=== PATIENT | male | born 1985 | race Caucasian/White ===

== ENCOUNTER 2016-12-12 15:41 | Inpatient (IN) ==
[2016-12-12 17:10] LABS: MANUAL DIFF NEEDED? NO
[2016-12-12 17:21] LABS: BASO% 0.2 % (0.0-0.8); EOS# 0.06 X1000 (0.0-0.7); EOS% 0.5 % (0.0-10.0); HEMATOCRIT 44.3 % (42.0-52.0); HEMOGLOBIN 14.8 g/dL (14.0-18.0); IMM GRAN# 0.03 X1000 (0.0-0.04); IMM GRAN% 0.2 % (0.0-0.5); LYMPH# 2.11 X1000 (1.2-3.4); LYMPH% 16.6 % (20.5-51.1); MCH 29.9 PG (27-31); MCHC 33.4 g/dL (33-37); MCV 89.5 FL (81-99); MONO# 1.02 X1000 (0.11-0.59); MPV 9.8 FL (7.4-10.4); NEUT% 74.5 % (42.2-75.2); PLT 248 X1000 (130-400); RBC 4.95 XMIL (4.7-6.1)
[2016-12-12 17:31] LABS: AGAP 9; ALBUMIN 4.1 g/dL (3.5-5.0); ALKALINE PHOSPHATASE 104 U/L (32-122); BUN 6 mg/dL (8-22); CALCIUM 9.1 mg/dL (8.8-10.2); CHLORIDE 103 mmol/L (98-107); COSMO 273; GOT 11 U/L (10-34); GPT 10 U/L (10-44); POTASSIUM 4.2 mmol/L (3.5-5.1); SODIUM 138 mmol/L (136-145); TCO2 26 mmol/L (25-35); TOTAL PROTEIN 7.4 g/dL (6.3-8.3)
[2016-12-12] MEDS: VANCOMYCIN 1 GM/NS 1 GM/250 ML IVPB IV ONE ×2 (17:31→18:20)
[2016-12-12 17:44] LABS: UR AMPHETAMINES QUAL NONE DETECTED (NONE DETECT); UR BARBITUATES QUAL NONE DETECTED (NONE DETECT); UR BENZODIAZEPIN QUAL NONE DETECTED (NONE DETECT); UR CANNABINOIDS QUAL PRESUMPTIVE POSITIVE (NONE DETECT); UR COCAINE QUAL NONE DETECTED (NONE DETECT); UR MDMA QUAL NONE DETECTED (NONE DETECT); UR METHADONE QUAL NONE DETECTED (NONE DETECT); UR METHAMPHETAMINE QUAL NONE DETECTED (NONE DETECT); UR OPIATES QUAL NONE DETECTED (NONE DETECT); UR OXYCODONE QUAL NONE DETECTED (NONE DETECT); UR PCP QUAL NONE DETECTED (NONE DETECT); UR TCA QUAL NONE DETECTED (NONE DETECT)
[2016-12-12 17:45] LABS: BILIRUBIN URINE NEGATIVE (NEGATIVE); BLOOD URINE NEGATIVE (NEGATIVE); CLARITY CLEAR (CLEAR); COLOR YELLOW; GLUCOSE URINE NEGATIVE (NEGATIVE); LEUKOCYTES URINE TRACE (NEGATIVE); NITRITE URINE NEGATIVE (NEGATIVE); PROTEIN URINE NEGATIVE (NEGATIVE); SP GRAVITY URINE 1.005; UROBILINOGEN URINE NORMAL
[2016-12-12 17:56] LABS: URINE EPITHELIAL CELLS <10 /HPF (<10); URINE WBC <10 /HPF (<10)
[2016-12-12 17:57] LABS: URINE CAST NONE SEEN /LPF; URINE CRYSTAL NONE SEEN /HPF; URINE CULTURE PL NEEDED? YES; URINE SOURCE CLEAN CATCH
[2016-12-12] MEDS ORDERED: TYLENOL PO PRN (19:17)
[2016-12-12] MEDS ORDERED: ZOFRAN IV PRN (19:17)
[2016-12-12] MEDS ORDERED: NS 1,000 ML IV ONE (19:17)
[2016-12-12] MEDS ORDERED: MORPHINE IV PRN (19:17)
[2016-12-12] MEDS ORDERED: VANCOMYCIN IV PER PHARMACY MISC SCH (19:30)
[2016-12-12] MEDS: MERREM 1 GM in NS 50 ML IV SCH (20:00)
[2016-12-12] MEDS: MORPHINE IV PRN (22:16)
[2016-12-13] MEDS: MERREM 1 GM in NS 50 ML IV SCH ×3 (03:33→20:18)
[2016-12-13] MEDS: MORPHINE IV PRN ×7 (07:17→22:19)
[2016-12-13] MEDS: VANCOMYCIN 1,500 MG in NS 250 ML IV SCH ×2 (07:59→22:19)
[2016-12-13] MEDS: TORADOL IV PRN (10:23)
--- NOTE | 2016-12-13 14:11 | HISTORY AND PHYSICAL ---
PRIMARY CARE PHYSICIAN: None. CHIEF COMPLAINT: Left elbow swelling and redness with chills and a subjective fever for the past several days, that has progressively worsened. HISTORY OF PRESENTING ILLNESS: This is a 31-year-old male, who presents to [facility] Emergency Room, with complaints of the left elbow swelling and redness, with chills and a subjective fever for the past several days that has progressively worsened. States he does not know of any injury or issues that may have caused this swelling and redness. Workup in the ER showed a white blood cell count of 12.72. His urine drug presumptive positive for cannabinoids, which he states he uses occasionally. He is noted to have erythema, edema, and tenderness to touch to his left elbow, and is unable to straighten his arm out at this time. So, he is being admitted for further evaluation and treatment. PAST MEDICAL HISTORY: None. PAST SURGICAL HISTORY: Appendectomy and a left forearm surgery. FAMILY HISTORY: Noncontributory. SOCIAL HISTORY: Currently lives with family. Smokes a half a pack of cigarettes a day and has done so for the past 17 years. Denies any alcohol use and smokes marijuana occasionally. ALLERGIES: Penicillin. HOME MEDICATIONS: He does not take any medications on a routine basis. LABORATORY DATA: Shows a white blood cell count of 12.72, hemoglobin of 14.8, hematocrit 44.3, platelets 248,000. Sodium 138, potassium 4.2, chloride 103, CO2 26, BUN of 6, creatinine 0.7, glucose 93. Plasma lactate of 1. Urinalysis is negative. Urine drug screen is presumptive positive for cannabinoids. Urine culture shows no growth. Blood cultures x2 are pending. REVIEW OF SYSTEMS: Positive for fever, chills, left elbow swelling, redness, and tenderness to touch. Denies any chest pain, coughing, or shortness of breath. Denies any constipation, diarrhea, burning or hurting with urination. PHYSICAL EXAMINATION: VITAL SIGNS: On arrival, he had a temperature of a 100 degrees, pulse 108, respirations 19, blood pressure 135/75, saturating 100% on room air. GENERAL: This is a 31-year-old male, who is lying in the bed and answers all questions appropriately. HEENT: Normocephalic and atraumatic. The pupils are equal, round, and reactive to light. The extraocular movements are intact. Oropharynx and nares are clear. NECK: Supple. LUNGS: Clear to auscultation bilaterally with equal lung expansion and chest wall movement. HEART: With regular rate and rhythm. No murmurs, rubs, or gallops. ABDOMEN: Soft, nontender, nondistended. Bowel sounds are present x4 quadrants. EXTREMITIES: The patient's left elbow is noted to have edema, erythema, and tenderness to touch. Unable to extend at this time, as it causes pain. NEUROLOGICAL: The cranial nerves 2-12 are grossly intact. ASSESSMENT: 1. A left elbow cellulitis. 2. Leukocytosis. 3. Tobacco abuse. 4. Marijuana abuse. PLAN: He was admitted to the medical unit at [facility]. Placed on a regular diet. We are checking an HIV/AB screen. Placed on meropenem 1 gram IV q.8, morphine 2 mg IV q.2 hours p.r.n., vancomycin per pharmacy protocol, and will recheck a CBC and a BMP in the a.m. Dictated by XIMENA Bee for James Cochran MD cc: XIMENA Bee MD
[2016-12-14] MEDS: MERREM 1 GM in NS 50 ML IV SCH ×3 (04:32→19:49)
[2016-12-14] MEDS: MORPHINE IV PRN ×6 (05:31→19:48)
[2016-12-14] MEDS: TORADOL IV PRN ×3 (05:35→19:49)
[2016-12-14 06:31] LABS: MANUAL DIFF NEEDED? NO
[2016-12-14 06:38] LABS: BASO% 0.4 % (0.0-0.8); EOS# 0.22 X1000 (0.0-0.7); EOS% 1.7 % (0.0-10.0); HEMATOCRIT 40.3 % (42.0-52.0); HEMOGLOBIN 13.2 g/dL (14.0-18.0); IMM GRAN# 0.02 X1000 (0.0-0.04); IMM GRAN% 0.2 % (0.0-0.5); LYMPH# 1.86 X1000 (1.2-3.4); LYMPH% 14.5 % (20.5-51.1); MCH 29.6 PG (27-31); MCHC 32.8 g/dL (33-37); MCV 90.4 FL (81-99); MONO# 1.14 X1000 (0.11-0.59); MONO% 8.9 % (1.7-9.3); NEUT% 74.3 % (42.2-75.2); PLT 230 X1000 (130-400); RBC 4.46 XMIL (4.7-6.1)
[2016-12-14 07:03] LABS: AGAP 10; BUN 11 mg/dL (8-22); CALCIUM 8.5 mg/dL (8.8-10.2); CHLORIDE 102 mmol/L (98-107); COSMO 267; POTASSIUM 4.4 mmol/L (3.5-5.1); SODIUM 134 mmol/L (136-145); TCO2 23 mmol/L (25-35)
[2016-12-14] MEDS: VANCOMYCIN 1,500 MG in NS 250 ML IV SCH ×2 (08:29→20:57)
[2016-12-14 11:21] LABS: HIV ANTIBODY SCREEN SEE COMMENTS
--- NOTE | 2016-12-14 15:53 | PROGRESS NOTE ---
DATE: 12/14/2016 SUBJECTIVE: This patient states that he is feeling a little bit better, but he is still complaining of pain at the level of the left elbow. He denies nausea, vomiting. No diarrhea, no fever, no chills. OBJECTIVE: Vital Signs: Temperature 98.3 degrees, pulse 60, respiratory rate 20, blood pressure 118/51, oxygen saturation 99 on room air. HEENT: Head normocephalic. No trauma. PERRLA. Neck: Supple. No JVD. No masses. Central trachea. Chest: Clear to auscultation. No wheezing. No rales. Cardiovascular: RRR. No murmurs. No gallops. No rubs. Abdomen: Soft, nontender, nondistended. No hepatosplenomegaly. Extremities: No edema, no clubbing, no cyanosis. He has signs of infection at the level of the left antecubital fossa. Neurological examination: The patient is alert and oriented x3. No focal neurological deficits. LABORATORY: WBC 12.8, hemoglobin 13.2, hematocrit 40.3, platelets 230. Sodium 134, potassium 4.4, chloride 102, bicarbonate 23, BUN 11, creatinine 0.5, glucose 91, calcium 8.5. CULTURES: Urine culture and blood culture negative so far. ASSESSMENT AND PLAN: 1. Left antecubital fossa cellulitis, continue with broad spectrum antibiotics. This patient has been denying multiple times intravenous drugs use. I will continue with the same management for now, and I will add oral medication for his pain as well. 2. Leukocytosis. This is about the same. Continue to monitor. 3. Marijuana abuse. This patient has been highly advised against drug abuse. I will continue with daily cessation education. 4. Tobacco abuse. This patient has been highly advised against tobacco use, and I will continue daily cessation education as well. cc: James Cochran MD
[2016-12-14] MEDS: NORCO-7.5 PO PRN (17:46)
[2016-12-15] MEDS: MERREM 1 GM in NS 50 ML IV SCH ×2 (05:06→14:02)
[2016-12-15] MEDS: MORPHINE IV PRN ×5 (06:35→21:07)
[2016-12-15 08:02] LABS: MANUAL DIFF NEEDED? NO
[2016-12-15 08:06] LABS: BASO% 0.5 % (0.0-0.8); EOS# 0.23 X1000 (0.0-0.7); EOS% 2.4 % (0.0-10.0); HEMATOCRIT 40.9 % (42.0-52.0); HEMOGLOBIN 13.4 g/dL (14.0-18.0); IMM GRAN# 0.02 X1000 (0.0-0.04); IMM GRAN% 0.2 % (0.0-0.5); LYMPH# 1.97 X1000 (1.2-3.4); LYMPH% 20.6 % (20.5-51.1); MCH 29.5 PG (27-31); MCHC 32.8 g/dL (33-37); MCV 90.1 FL (81-99); MONO# 0.82 X1000 (0.11-0.59); MONO% 8.6 % (1.7-9.3); NEUT% 67.7 % (42.2-75.2); PLT 227 X1000 (130-400); RBC 4.54 XMIL (4.7-6.1)
[2016-12-15] MEDS: TORADOL IV PRN ×2 (08:14→16:08)
[2016-12-15 09:11] LABS: AGAP 10; BUN 12 mg/dL (8-22); CALCIUM 8.9 mg/dL (8.8-10.2); CHLORIDE 106 mmol/L (98-107); COSMO 277; POTASSIUM 4.7 mmol/L (3.5-5.1); SODIUM 139 mmol/L (136-145); TCO2 23 mmol/L (25-35)
[2016-12-15] MEDS: VANCOMYCIN 1,700 MG in NS 250 ML IV SCH ×2 (11:42→23:36)
[2016-12-15] MEDS: VANCOMYCIN 1,500 MG in NS 250 ML IV SCH (12:00)
[2016-12-15] MEDS: ROCEPHIN 1 GM/NS 1 GM/50 ML IVPB IV SCH (16:01)
[2016-12-15] MEDS: NORCO-7.5 PO PRN (16:08)
--- NOTE | 2016-12-15 16:25 | PROGRESS NOTE ---
DATE: 12/15/2016 SUBJECTIVE: Today Mr. Ricks referred to be doing fine. Continued to have some swelling and pain in the left cubital fossa. OBJECTIVE: Vitals: Stable. Blood pressure is 120/53, pulse of 80, respiration is 18, temperature is 98.8 degrees. General Exam: Mr. Ricks is a 31-year-old male. He is in bed, not seemingly in distress. HEENT: Mucosa is pink and moist. Anicteric. Acyanotic. Neck: Supple. Chest: Clear. Cardiovascular: Regular rate and rhythm. Abdomen: Soft, nontender. Extremities: There is no pedal edema. There is about 4 x 3 cm swelling on the lateral aspect of the left cubital fossa, it is warm, it is tender. There is a central area of possible minimal fluctuation. SURVEILLANCE MANAGER: Patient is alert and oriented x4. There is no focal neurological deficit. ASSESSMENT: 1. Left antecubital fossa cellulitis. Patient is currently on meropenem and vancomycin. I think this is most likely skin bugs. So we will cover for streps and staph. I will therefore discontinue the meropenem which is a broader spectrum, continue with the vancomycin which will cover for the staff. I will add ceftriaxone for now. The intention is when the swelling is a lot better we can transition it to only one oral medication, and I am thinking clindamycin p.o. would probably do as well. We are really not sure what might have started the cellulitis. It looks like it could have been something bit him or a possible underlying IV drug, so I am very reluctant to send him home on any IV medications. 2. Marijuana abuse noted. 3. Active tobacco use. Patient has been counseled. 4. Leukocytosis. Improved. So I think in general Mr. Ricks is doing fine. We will make some changes to his care and antibiotics. Hopefully by tomorrow if he continues to progress satisfactorily, we will be able to discharge him probably on oral clindamycin. cc: John Dixon MD [facility]
[2016-12-16] MEDS: VANCOMYCIN 1,700 MG in NS 250 ML IV SCH ×2 (00:02→11:13)
[2016-12-16] MEDS: MORPHINE IV PRN ×3 (08:50→14:49)
[2016-12-16] MEDS ORDERED: XYLOCAINE-MPF 2% ONE (14:39)
[2016-12-16] MEDS: ROCEPHIN 1 GM/NS 1 GM/50 ML IVPB IV SCH (15:22)
--- NOTE | 2016-12-16 15:39 | OPERATIVE NOTE ---
PROCEDURE DATE: 12/16/2016 PREOPERATIVE DIAGNOSIS: Left antecubital fossa abscess. POSTOPERATIVE DIAGNOSIS: Left antecubital fossa infected hematoma. PROCEDURE PERFORMED: Incision and drainage of left antecubital fossa abscess. ESTIMATED BLOOD LOSS: Old hematoma, but minimal, less than 5 mL fresh blood loss. COMPLICATION: None. ANESTHESIA: Local. SPECIMENS: None. INDICATIONS: A 31-year-old male with history of IV drug abuse, now with left antecubital fossa abscess. FINDINGS: There was a large cavity with a large amount of old-appearing hematoma and clot that was purulent. OPERATIVE NOTE: Risks, benefits, and alternatives were discussed with the patient and he consented to the procedure. The surgical site was confirmed. Time-out was performed. Left AC fossa was prepped with Betadine and draped sterilely. A transverse incision over the area of greatest fluctuance was planned. Local anesthetic with 2% Xylocaine was infiltrated. An 11 blade scalpel was used to enter the abscess cavity. A large amount of old purulent hematoma was expressed, loculations were disrupted, and it was completely evacuated. We confirmed hemostasis. We packed the wound with iodoform gauze covered with a loose Kerlix. He tolerated it well. There were no identified complications. cc: Antoine Santiago MD
--- NOTE | 2016-12-16 16:09 | PROGRESS NOTE ---
DATE: 12/16/2016 SUBJECTIVE: Today Mr. Ricks referred to be doing relatively stable. He continues to have swelling to the left antecubital fossa. OBJECTIVE: Vitals: Blood pressure is 122/48, pulse of 73, respiration is 18, temperature 98.3 degrees. Patient is saturating 98% on room air. Physical exam is unchanged except for the left antecubital fossa which still has the swelling. The middle part of it is now very fluctuant and there is a discoloration right on top of it. ASSESSMENT: 1. Left antecubital fossa cellulitis. This is now getting fluctuant. I think it has now abscessed, so we will get Surgery on board to perform an incision and drainage, and we will send the specimen for culture and Gram stain. 2. Marijuana abuse. Patient has been advised. 3. Active tobacco use. Counseled. So in general we are going to continue with the current antibiotic coverage including vancomycin and ceftriaxone. We will consult Surgery to evaluate for incision and drainage, hopefully get the patient discharged very soon. cc: John Dixon MD [facility]
[2016-12-16] MEDS: NORCO-7.5 PO PRN (18:14)
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
[2016-12-17] MEDS: VANCOMYCIN 1,700 MG in NS 250 ML IV SCH ×2 (00:30→12:35)
[2016-12-17 07:34] VITALS: BP 116/46
[2016-12-17] MEDS: NORCO-7.5 PO PRN ×2 (08:24→14:41)
[2016-12-17] MEDS ORDERED: CLEOCIN PO SCH (13:00)
--- NOTE | 2016-12-17 16:26 | PROGRESS NOTE ---
DATE: 12/17/2016 SUBJECTIVE: Feels much better. Pain is improved in his arm. OBJECTIVE: Vital signs: No fevers this morning. Temperature is 97.9, pulse 57, blood pressure 116/46. Cardiovascular: Normal rate, regular rhythm. Pulmonary: No increased work of breathing. General: He is alert, no acute distress. Extremities: Left arm exam the strength is intact. There is much improvement in the focal erythema, induration, swelling and minimal serosanguineous drainage noted from the incision. Much less tender. LABS: I reviewed his labs. Nothing new this morning. ASSESSMENT AND PLAN: A 31-year-old male with left arm cellulitis and subsequent what appeared to be infected hematoma causing abscess of left acromioclavicular fossa. Suspect etiology is intravenous drug abuse. He is clinically much improved after I and D yesterday. Dr. Dixon transitioned to oral antibiotics, plans let him go, I have given my contact information. Will see me back end of this week for wound check. Otherwise he will keep the wound clean with a dry dressing. Discussed signs and symptoms of worsening infection, he will call me if develops any of these. cc: Antoine Santiago MD
[2016-12-17] MEDS ORDERED: CULTURELLE PO SCH (21:00)
--- NOTE | 2016-12-18 04:29 | DISCHARGE SUMMARY ---
ADMISSION DATE: 12/12/2016 DISCHARGE DATE: 12/17/2016 DISPOSITION: Home. FOLLOWUP: With Dr. Santiago. CONSULTATION DURING THIS ADMISSION: General Surgery was consulted. Patient was seen by Dr. Santiago. INVASIVE PROCEDURES DONE DURING THIS ADMISSION: I D of the left antecubital fossa was done. ADMISSION DIAGNOSES: 1. Left elbow cellulitis. 2. Leukocytosis. 3. Tobacco abuse. 4. Marijuana use. DISCHARGE DIAGNOSES: 1. Left antecubital fossa cellulitis, with infected hematoma, status post I D. 2. Cannabis abuse. 3. Active tobacco use. DISCHARGE MEDICATIONS: 1. Clindamycin 300 mg p.o. 3 times per day. 2. Lactobacillus. 3. Acetaminophen 650 mg. PRESENTING COMPLAINT: Left elbow swelling, redness, chills, and fever. HISTORY OF PRESENTING COMPLAINT: Mr. Ricks is a 31-year-old male who presented to the [facility] with swelling to the left forearm, associated with some fever and chills. The patient was evaluated, was deemed to be infection in etiology, and was admitted for further medical care. HOSPITAL COURSE: The patient was admitted and treated in regular fashion. IV antibiotics and pain management. The swelling got fluctuant, so surgery was consulted. Patient was seen by Dr. Santiago. I D at the bedside was done, and some purulent bloody material was drained. The patient tolerated the procedure without any complication. Postoperatively, he referred to be doing a whole lot better. Patient would therefore be discharged on the above medications. He is advised to follow up with Dr. aSntiago, and also with the wound center. At the time of discharge, there are not any pending labs or imaging studies. TIME SPENT: 35 minutes. cc: John Dixon MD
--- NOTE | 2016-12-20 18:07 | PROVIDER DOCUMENTATION ---
This chart was entered by Robert Wang Scribe, acting as scribe for Isacc Rivero MD. HPI-Rash/Wound/ReCheck <RobertoJarod - Last Filed: 12/12/16 19:23> - General Source: patient - History of Present Illness-Dermatology Location: reports: upper extremity (left elbow) Quality: reports: painful Severity: reports: moderate Onset/Duration: reports: gradual, 2 days ago, 3 days ago Timing: reports: still present, constant Context/Associated Symptoms: reports: edema, fever, tender area Locality of [place]: Home Similar Symptoms Previously?: No Recently seen or treated by another doctor?: No <Isacc Rivero - Last Filed: 12/20/16 18:07> - General Chief Complaint: Extremity Pain Stated Complaint: EXTREMITY PAIN Time Seen by Provider: 12/12/16 16:10 Allergies/Adverse Reactions: Allergies Allergy/AdvReac Type Severity Reaction Status Date / Time Penicillins Allergy RASH Verified 12/09/14 09:38 Home Medications: Home Medication List Medication Instructions Recorded Confirmed Last Taken Type Acetaminophen [Tylenol] 650 mg PO Q6H PRN PRN #30 tablet 12/17/16 Unknown Rx Clindamycin [Cleocin] 300 mg PO TID #21 capsule 12/17/16 Unknown Rx Lactobacillus Rhamnosus GG 1 each PO BID #20 capsule 12/17/16 Unknown Rx [Culturelle] - History of Present Illness-Dermatology Nature of Presenting Problem: pt is a 31 y/o M that presents with left elbow swelling and redness for a few days. reports fever and chills but no other symptoms (Robert Wang) pt is a 31 y/o M that presents with left elbow swelling and redness for a few days. reports fever and chills but no other symptoms (Isacc Rivero) Review of Systems - Adult - REVIEW OF SYSTEMS - ADULT Constitutional: reports: chills, fever Eyes: reports: no symptoms reported Ears, Nose, Mouth & Throat: denies: ear discharge, sinus problem, throat pain, throat swelling Cardiovascular: reports: no symptoms reported Respiratory: reports: no symptoms reported Gastrointestinal: reports: no symptoms reported Genitourinary: reports: no symptoms reported Musculoskeletal: reports: joint pain, joint swelling Integumentary: reports: other (redness) Neurological: reports: no symptoms reported Psychiatric: reports: no symptoms reported Endocrine: reports: no symptoms reported Hematologic/Lymphatic: reports: no symptoms reported Allergic/Immunologic: reports: no symptoms reported All Other Systems: Reviewed and Negative <RiveroIsacc X - Last Filed: 12/20/16 18:07> Past History - Adult - PAST MEDICAL HISTORY-ADULT Review of Records: reports: Old Records Reviewed, Nursing Assessment Review, Medications Reviewed Musculoskeletal: reports: arthritis - PRIOR SURGERIES/PROCEDURES Surgical/Procedure History: reports: reviewed, not pertinent - IMMUNIZATION STATUS Childhood Immunizations: See Nurse Assessment Flu Vaccine: See Nurse Assessment - FAMILY HISTORY Family History: reviewed, not pertinent - SOCIAL HISTORY Smoking: cigarettes, less than 1 pack/day Substance Use: none presently/history of abuse <Andreas Riverojoaquim X - Last Filed: 12/20/16 18:07> Physical Exam-General - PHYSICAL EXAM-ADULT Initial Vital Signs Reviewed: Yes - CONSTITUTIONAL General Appearance: alert, no apparent distress - EYES Eyes: PERRL/EOMI, pink conjunctivae - HEAD, EARS, NOSE, MOUTH & THROAT HENMT: normocephalic/atraumatic, moist mucous membranes, normal ENT inspection - NECK Neck: full range of motion, normal inspection - RESPIRATORY Respiratory: lungs clear, normal breath sounds, no respiratory distress, no accessory muscle use - CARDIOVASCULAR Cardiovascular: no edema, no murmur, tachycardia - GASTROINTESTINAL (ABDOMEN) Abdominal Exam: normal bowel sounds, non tender, soft, no organomegaly, no pulsatile mass - MUSCULOSKELETAL Extremity: normal capillary refill, pelvis stable - SKIN Integumentary: warm/dry, erythema (left elbow), swelling (left elbow), other ( old track ji) - NEUROLOGIC Neurologic: grossly normal, no motor/sensory deficits - PSYCHIATRIC Psych/Mental Status: normal mood/affect, normal thought content, normal thought process, oriented x 3 <MatIsacc X - Last Filed: 12/20/16 18:07> Progress - PLAN OF CARE/RESULTS Result Diagrams: 12/12/16 17:05 12/12/16 17:05 - REASSESSMENT Reassessment #1 Time Reassessed: 19:00 Status: unchanged (spoke w Dr. ANAND orders for admission written) <Jarod Mejia - Last Filed: 12/12/16 19:23> - PLAN OF CARE/RESULTS Result Diagrams: 12/15/16 07:50 12/15/16 07:50 - CHANGE OF SHIFT REPORT (ED Provider) Report Given and Care Transferred to:: Dr. Mejia Time of Transfer: 18:08 Items Pending: Labs, Other (Dispo) <Isacc Rivero X - Last Filed: 12/20/16 18:07> - PLAN OF CARE/RESULTS Progress/Plan/Lab Results: Orders Category Date Time Status Admit - [facility] Routine AdmDCTranf 12/12/16 19:17 Ordered Activity - Bed Rest with BRP ORDERED Care 12/12/16 19:17 Active Resuscitation Status Routine Care 12/12/16 19:17 Ordered Saline Loc DIRECTED Care 12/12/16 19:17 Completed Saline Loc NOW Care 12/12/16 16:38 Completed Regular Diet Diet 12/12/16 19:19 Completed BLOOD CULTURE [BLDCUL] Stat Lab 12/12/16 17:55 Completed CBC WITH DIFF [HEME] Stat Lab 12/12/16 17:05 Completed COMPREHENSIVE METABOLIC PANEL [CHEM] Stat Lab 12/12/16 17:05 Completed HIV AB SCREEN [HH] Stat Lab 12/12/16 16:38 Completed LACTATE, PLASMA [CHEM] Stat Lab 12/12/16 17:05 Completed UDS [URINE DRUG SCREEN PL] Stat Lab 12/12/16 17:[address] W/POSS RFLX CULT [URINALYSIS] Stat Lab 12/12/16 17:20 Completed URINE CULTURE [RM] Routine Lab 12/12/16 17:55 Completed 0.9% Sodium Chloride Inj [Ns] 1,000 ml Med 12/12/16 19:17 Discontinued IV 75 mls/hr Acetaminophen [Tylenol] Med 12/12/16 19:17 Discontinued 650 mg PO Q6H PRN PRN Ketorolac [Toradol] Med 12/12/16 19:17 Discontinued 15 mg IV Q4H PRN PRN Meropenem [Merrem] 1 gm Med 12/12/16 20:00 Discontinued 0.9% Sodium Chloride Inj [Ns] 50 ml IV Q8H Morphine Med 12/12/16 19:17 Discontinued 2 mg IV Q2H PRN PRN Morphine Med 12/12/16 19:23 Discontinued 2 mg IV Q2H PRN PRN Ondansetron [Zofran] Med 12/12/16 19:17 Discontinued 4 mg IV Q4H PRN PRN Pharmacy Order [Vancomycin IV Per Pharmacy] Med 12/12/16 19:30 Discontinued 1 each MISC DIRECTED Vancomycin 1 gm/Ns Med 12/12/16 16:38 Discontinued 1 gm in 250 ml IV NOW Transfer/Admit Order [TRANSFER] Routine Transfer 12/12/16 19:20 Completed Departure - Departure Time of Disposition Decision: 19:15 Certified Medical Emergency: Emergent - Critical Care Note This patient required my direct & personal management of CC.: No <Jarod Mejia - Last Filed: 12/12/16 19:23> - Departure Time of Disposition Decision: 19:16 Certified Medical Emergency: Emergent - Critical Care Note This patient required my direct & personal management of CC.: No <Isacc Rivero - Last Filed: 12/20/16 18:07> - Departure DIAGNOSIS: Cellulitis of arm, left Disposition: ADMITTED INPATIENT 09 Condition: Stable This chart was documented by the indicated scribe, (Robert Wang, Sima) and accurately reflects the services I performed and decisions made by me, Isacc Rivero MD, as attested by the provider's signature.
== END 2016-12-17 15:10 | disposition home or self-care (01) ==
LOC: P.ED 15:41 → SUATTDRO 19:47 → P.MEDSURG 19:47
PROVIDERS: ATTEND Internal Medicine